=== PATIENT | female | born 1985 | race Caucasian/White ===

== ENCOUNTER → 2018-04-29 | Outpatient (CLI) | payer OTHER ==
[~2018-04-29] MED LIST: NAPR-243 PO; OXYC-12 PO; PREN1TAB25 PO; TRM50T PO
== END ==
LOC: LAB 20:32
PROVIDERS: ATTEND Obstetrics & Gynecology
DX: O20.0 Threatened abortion (principal)
CPT/HCPCS: 36415; 84702

== ENCOUNTER → 2018-04-30 | Outpatient (CLI) | payer OTHER ==
--- NOTE | 2018-04-30 09:32 | Diagnostic Imaging Report ---
PROCEDURE: US OB SINGLE FETUS <14 WKS. TECHNIQUE: Multiple real-time grayscale images were obtained over the gravid uterus in various projections. INDICATION: Early , vaginal bleeding COMPARISON: None. FINDINGS: There is a single live intrauterine with a heart rate of 130 beats per minute. The amniotic fluid, decidual reaction and pole are grossly unremarkable. There was no subchorionic hemorrhage. Both ovaries have a normal appearance. There is no torsion or adnexal mass. There is no free fluid. IMPRESSION: Single live intrauterine at 7 weeks zero days with a due date of 12/17/2018. No abnormalities identified. Preliminary report was called to the patient's nurse. Dictated by: Dictated on workstation # [id number]
== END ==
LOC: RAD 08:30
PROVIDERS: ATTEND Obstetrics & Gynecology
DX: O20.0 Threatened abortion (principal); Z3A.01 Less than 8 weeks gestation of pregnancy
CPT/HCPCS: 76801